=== PATIENT | female | born 1945 | race Caucasian/White ===

== ENCOUNTER 2018-06-06 11:10 | Outpatient (RCR) | payer MEDICARE ==
[~2018-06-06 11:10] MED LIST: AUGMENTIN500TAB PO; PERCOCET 5/325M1 TAB PO; VIGAMOX OD
== END 2018-07-02 10:39 | disposition home or self-care (01) ==
LOC: PT 11:10
PROVIDERS: ATTEND Orthopaedic Surgery
DX: M22.42 Chondromalacia patellae, left knee (principal); M22.41 Chondromalacia patellae, right knee